=== PATIENT | male | born 1980 | race Caucasian/White ===

== ENCOUNTER 2025-08-28 06:16 | Day surgery (SDC) | payer BC, SELFPAY ==
[2025-08-28] VITALS (11 sets, daily range): BP systolic 107–137; BP diastolic 57–87; PULSE 69–81; RESP 16–20; TEMP 36.2–36.6; O2SAT 91–98; BMI 32.7
[2025-08-28] MEDS: LACTATED RINGERS 1000 ML 1,000 ML 100 ML IV (06:56)
[2025-08-28] MEDS: SODIUM CHLORIDE 0.9 % (FLUSH) 10 ML SYRINGE IVF (06:56)
--- NOTE | 2025-08-28 07:13 | W.PM.H&PU ---
History & Physical Update History & Physical Update H&P Reviewed and patient assessed: No changes noted
--- NOTE | 2025-08-28 07:13 | PM.GSPRC ---
Operative Note Date of procedure: 08/28/25 Pre-op diagnosis: 1. Symptomatic umbilical hernia. Post-op diagnosis: 1. Incarcerated umbilical hernia containing preperitoneal fat. Type of Procedure: 1. Open umbilical hernia repair with mesh. Indications: 44-year-old male was seen in clinic for evaluation of umbilical bulge. He noticed the bulge a long time ago but in the winter when he was sick and was coughing a lot, he noticed that the bulge was protruding a lot more. When the bulge was prominent, it was uncomfortable. He was usually able to reduce it. Patient denied any episodes of incarceration. When his sickness improved, and he was not coughing as much, he noticed that discomfort has improved as well. On clinical exam there is an umbilical bulge present that was approximately 2.5 cm. When the bulge was reduced, the fascial defect was 2 cm. Given patient's clinical history and his physical exam, an open umbilical hernia repair was recommended. The procedure was discussed in detail. The risks associated procedure including infection, bleeding, injury to intra-abdominal organs, and hernia recurrence were all discussed with the patient, and he agreed to proceed. Procedure Description: After discussing the risks and benefits of the procedure, the patient signed informed consent.? The operative site was marked and the patient was brought to the operating room and placed on the operating table in supine position.? Care was taken to pad the patient's pressure points.?? The patient was then intubated by anesthesia.?? The operative site was then prepped and draped in the usual sterile fashion.? A time-out was then performed. Local anesthetic was injected at the surgical site. A curvilinear skin incision was made with a scalpel just below umbilicus. Subcutaneous tissue was dissected with electrocautery down to the hernia sac and anterior fascia. The hernia sac was dissected off of the anterior fascia and subcutaneous fat around the fascial defect was dissected away from the fascial defect with cautery. Hemostasis achieved with cautery. I then developed preperitoneal space for mesh insertion. Fascial defect was 2 cm in largest dimension. A medium-sized Ventralex ST mesh patch was then inserted into preperitoneal space and secured to the fascia using 0-0 Neurolon interrupted stitches. I examined my closure and no defects were identified between the fascia and the mesh. Fascia was re-approximated over the mesh with a running 2-0 Vicryl stitch. Additional local anesthetic was injected into subcutaneous tissues. An umbilicus was tacked down with interrupted 3-0 Vicryl stitches. Subdermal layer was closed with interrupted sutures using 3-0 Vicryl. Skin was closed with 4-0 Monocryl using subcuticular stitch. Steri strips were applied over the incision. I then placed a folded sterile 4x4 gauze into the umbilicus and over the incision and covered it with tape. All counts were correct at the end of the case. Patient tolerated the procedure well and was transferred to PACU without any complications. Findings: 2 cm fascial defect. The hernia defect was repaired with medium-sized Ventralex ST mesh. Implants: Ventralex ST mesh Anesthesia: GETHero Surgeon: Michelle Lutz MD Estimated blood loss (mL): 5 Condition: stable Disposition: PACU
[2025-08-28] MEDS: BUPIVACAINE 0.25% 30 ML INJECTION (07:45)
[2025-08-28] MEDS: LIDOCAINE 1%-EPI 1:100,000 20 ML INFILTRATI (07:45)
--- NOTE | 2025-08-28 08:54 | P.ANES_ITS ---
Anesthesia Charges Start Date/Time Anesthesia Start Date: 08/28/25 Anesthesia Start Time: 07:25 Stop Date/Time Anesthesia Stop Date: 08/28/25 Anesthesia Stop Time: 08:52 Coding CPT Codes CPT Codes: ANESTH REPAIR OF HERNIA - 98402 ([id number]) P2 - PATIENT W/MILD SYST DISEASE, QK - DIE CLEANER 2-4 CNCRNT ANES PROC, QX - ONCOLOGY PHYSICIAN ASSISTANT SVC W/ MD MED DIRECTION
--- NOTE | 2025-08-28 08:54 | W.ANESCHARGE ---
Anesthesia Charges Start Date/Time Anesthesia Start Date: 08/28/25 Anesthesia Start Time: 07:25 Stop Date/Time Anesthesia Stop Date: 08/28/25 Anesthesia Stop Time: 08:52 Coding CPT Codes CPT Codes: ANESTH REPAIR OF HERNIA - 03215 ([id number]) P2 - PATIENT W/MILD SYST DISEASE, QK - COUNSELING CASE MANAGER 2-4 CNCRNT ANES PROC, QX - STAFF NURSE MIDWIFE SVC W/ MD MED DIRECTION
--- NOTE | 2025-08-28 09:30 | P.ANES_ITS ---
Anesthesia Charges Start Date/Time Anesthesia Start Date: 08/28/25 Anesthesia Start Time: 07:25 Stop Date/Time Anesthesia Stop Date: 08/28/25 Anesthesia Stop Time: 08:52 Coding CPT Codes CPT Codes: ANESTH REPAIR OF HERNIA - 15707 ([id number]) QK - OPERATIONS TECHNICIAN 2-4 CNCRNT ANES PROC, QX - CRM DYNAMICS DEVELOPER SVC W/ MD MED DIRECTION, P2 - PATIENT W/MILD SYST DISEASE
--- NOTE | 2025-08-28 09:30 | W.ANESCHARGE ---
Anesthesia Charges Start Date/Time Anesthesia Start Date: 08/28/25 Anesthesia Start Time: 07:25 Stop Date/Time Anesthesia Stop Date: 08/28/25 Anesthesia Stop Time: 08:52 Coding CPT Codes CPT Codes: ANESTH REPAIR OF HERNIA - 09949 ([id number]) QK - FIELD APPLICATIONS SPECIALIST 2-4 CNCRNT ANES PROC, QX - FACILITIES LOCATOR SVC W/ MD MED DIRECTION, P2 - PATIENT W/MILD SYST DISEASE
[2025-08-28] MEDS: HYDROCODONE-ACETAMIN 5-325 MG 1 TAB PO (09:39)
== END 2025-08-28 10:46 | disposition home or self-care (01) ==
PROVIDERS: PCP Family Medicine; Visit Provider Surgery
PROC: (CPT 49592; principal; 2025-08-28 07:30)
DX: K42.0 Umbilical hernia with obstruction, without gangrene (principal); E11.9 Type 2 diabetes mellitus without complications; Z79.84 Long term (current) use of oral hypoglycemic drugs
CPT/HCPCS: 49592; 00750; 81025; 82962; A9270; C1781; J0330; J0665; J0690; J1100; J2405; J2704; J2710; J3490; J7120